=== PATIENT | female | born 1990 | race African-American/Black ===

== ENCOUNTER 2024-08-31 03:21 | Emergency (ER) | payer OTHER ==
[~2024-08-31] VITALS: Ht 167.6 cm; Wt 79.0 kg
[2024-08-31 03:37] VITALS: BP 143/57; PULSE 93; RESP 16; TEMP 36.9; O2SAT 98
[2024-08-31 06:55] LABS: HEMATOCRIT. 33.8 % (36.0-48.0); MEAN CORPUSCULAR HEMOGLOBIN 28.1 pg (28.0-32.0); MEAN CORPUSCULAR HGB CONC 32.6 g/dL (31.0-37.0); MEAN CORPUSCULAR VOLUME 86.3 fL (81.0-99.0); MEAN PLATELET VOLUME 9.2 fl (7.4-10.4); PLATELET 260 x1000/uL (130-400); RED BLOOD CELL COUNT 3.92 mill/uL (4.2-5.4); RED CELL DISTRIBUTION WIDTH 15.3 % (11.6-14.6); WHITE BLOOD COUNT 9.3 x1000/uL (4.5-11.0)
[2024-08-31 07:01] LABS: CARBON DIOXIDE 25 mEq/L (21-32); CHLORIDE 106 mEq/L (98-107); POTASSIUM 3.9 mEq/L (3.5-5.1); SODIUM 140 mEq/L (136-145)
[2024-08-31 07:04] LABS: DIFFERENTIAL COMMENT 1
[2024-08-31 07:06] LABS: CREATININE 0.9 mg/dL (0.6-1.0)
[2024-08-31 07:07] LABS: B-HCG QUANTITATIVE 849 mIU/mL (<3); GLUCOSE 120 mg/dL (70-105); UREA NITROGEN BLOOD 10 mg/dL (9-23)
[2024-08-31 07:08] LABS: ALANINE AMINOTRANSFERASE 9 IU/L (10-49); ASPARTATE AMINOTRANSFERASE 15 IU/L (<34)
[2024-08-31 07:09] LABS: BILIRUBIN TOTAL 0.3 mg/dL (0.1-1.0); PROTEIN TOTAL 7.6 g/dL (6.0-8.3)
[2024-08-31 07:12] LABS: BILIRUBIN DIRECT < 0.1 mg/dL (<=3.0)
[2024-08-31 09:16] LABS: PLATELET ESTIMATE NORMAL
[2024-08-31 09:17] LABS: COLOR URINE YELLOW (YELLOW)
[2024-08-31 09:18] LABS: CLARITY URINE CLOUDY (CLEAR); PROTEIN URINE NEGATIVE (NEGATIVE)
[2024-08-31 09:19] LABS: GLUCOSE URINE NEGATIVE (NEGATIVE); KETONES URINE NEGATIVE (NEGATIVE); LEUKOCYTE ESTERASE URINE 1+ (NEGATIVE); NITRITE URINE POSITIVE (NEGATIVE); OCCULT BLOOD URINE 3+ (NEGATIVE); SPECIFIC GRAVITY URINE >=1.030 (1.005-1.030); UROBILINOGEN URINE 0.2 E.U./dL (0.2-1.0)
[2024-08-31 09:39] LABS: BACTERIA URINE 4+; RBC URINE 0-2 /hpf (0-2); SQUAMOUS EPITHELIAL CELL URINE 3+ /lpf (RARE/1+)
[2024-08-31 09:40] LABS: YEAST URINE NONE SEEN
[2024-08-31] MEDS: KETOROLAC 30MG/ML VIAL IM ONE (11:07)
[2024-08-31] MEDS: HYDROCODONE/ACETAMINOPHEN 5/325MG TABLET PO ONE (11:07)
[2024-08-31] MEDS: SULFAMETHOXAZOLE/TRIMETHOPRIM 800/160MG TABLET PO ONE (11:08)
[2024-08-31] MEDS ORDERED: SULF1TAB48 MT (12:03)
[2024-08-31] MEDS ORDERED: ACET-2708 MT (12:03)
== END 2024-08-31 12:27 | disposition home or self-care (01) ==
LOC: ER 03:52
DX: O04.88 Urinary tract infection following (induced) termination of pregnancy (principal); O26.91 Pregnancy related conditions, unspecified, first trimester; R10.2 Pelvic and perineal pain; Z3A.01 Less than 8 weeks gestation of pregnancy
CPT/HCPCS: 99285; 76801; 80076; 80048; 81003; 81025; 84702; 83690; 85025; 87086; 36415; 76817; 96372; J1885

== ENCOUNTER 2024-09-04 09:07 | Emergency (ER) | payer OTHER, MEDICAID ==
[~2024-09-04] VITALS: Ht 165.1 cm; Wt 79.0 kg
[~2024-09-04 09:07] MED LIST: ACET-2708 MT; SULF1TAB48 MT
[2024-09-04 09:16] VITALS: O2SAT 100
[2024-09-04 10:12] LABS: CLARITY URINE CLOUDY (CLEAR); COLOR URINE DARK YELLOW (YELLOW); GLUCOSE URINE NEGATIVE (NEGATIVE); KETONES URINE 1+ (NEGATIVE); LEUKOCYTE ESTERASE URINE 3+ (NEGATIVE); NITRITE URINE POSITIVE (NEGATIVE); OCCULT BLOOD URINE 2+ (NEGATIVE); PH URINE 6.5 (4.5-8.0); PROTEIN URINE 1+ (NEGATIVE); SPECIFIC GRAVITY URINE 1.016 (1.005-1.030)
[2024-09-04 10:26] LABS: WBC URINE 15-25 /hpf (0-2)
[2024-09-04 10:27] LABS: BACTERIA URINE 2+; SQUAMOUS EPITHELIAL CELL URINE 1+ /lpf (RARE/1+); YEAST URINE NONE SEEN
[2024-09-04 11:34] LABS: BASOPHILS % 0.2 % (0.0-2.0); EOSINOPHILS % 2.9 % (0.0-5.0); HEMATOCRIT. 31.1 % (36.0-48.0); HEMOGLOBIN. 10.4 g/dL (12.0-16.0); LYMPHOCYTES % 9.6 % (20.0-50.0); MEAN CORPUSCULAR HEMOGLOBIN 28.2 pg (28.0-32.0); MEAN CORPUSCULAR HGB CONC 33.6 g/dL (31.0-37.0); MEAN CORPUSCULAR VOLUME 83.9 fL (81.0-99.0); MEAN PLATELET VOLUME 8.9 fl (7.4-10.4); MONOCYTES % 9.1 % (2.0-8.0); NEUTROPHILS % 78.2 % (40.0-76.0); PLATELET 274 x1000/uL (130-400); RED BLOOD CELL COUNT 3.71 mill/uL (4.2-5.4); RED CELL DISTRIBUTION WIDTH 15.8 % (11.6-14.6); WHITE BLOOD COUNT 6.8 x1000/uL (4.5-11.0)
[2024-09-04 11:37] LABS: CHLORIDE 101 mEq/L (98-107); POTASSIUM 3.2 mEq/L (3.5-5.1); SODIUM 135 mEq/L (136-145)
[2024-09-04 11:38] LABS: CARBON DIOXIDE 24 mEq/L (21-32)
[2024-09-04 11:39] LABS: CALCIUM 9.3 mg/dL (8.7-10.4)
[2024-09-04 11:43] LABS: B-HCG QUANTITATIVE 154 mIU/mL (<3); GLUCOSE 83 mg/dL (70-105)
[2024-09-04 11:44] LABS: UREA NITROGEN BLOOD 10 mg/dL (9-23)
[2024-09-04] MEDS ORDERED: ONDA4TAB50 MT (12:52)
[2024-09-04] MEDS ORDERED: HYDR-4001 MT (12:52)
[2024-09-04] MEDS ORDERED: IBUP-2029 MT (12:52)
[2024-09-04] MEDS ORDERED: CEFD300C3 MT (12:52)
[2024-09-04] MEDS: CEFTRIAXONE SODIUM 1G VIAL IM ONE (13:18)
[2024-09-04 13:40] VITALS: BP 119/64; PULSE 93; RESP 14; TEMP 36.9; O2SAT 100
== END 2024-09-04 13:42 | disposition home or self-care (01) ==
LOC: ER 09:07
DX: N12 Tubulo-interstitial nephritis, not specified as acute or chronic (principal); Z79.899 Other long term (current) drug therapy
CPT/HCPCS: 99285; 76830; 76856; 80048; 81003; 81025; 84702; 85025; 86900; 86901; 87086; 36415; 96372; J0696

== ENCOUNTER 2024-09-18 10:45 | Emergency (ER) | payer MEDICAID, OTHER ==
[~2024-09-18] VITALS: Ht 165.1 cm; Wt 77.0 kg
[~2024-09-18 10:45] MED LIST changes: +CEFD300C3 MT; +HYDR-4001 MT; +IBUP-2029 MT; +ONDA4TAB50 MT
[2024-09-18 10:47] VITALS: O2SAT 99
[2024-09-18 10:56] VITALS: BP 125/73; PULSE 68; RESP 18; TEMP 36.7; O2SAT 100
[2024-09-18 11:58] LABS: MONOCYTES % 6.4 % (2.0-8.0)
[2024-09-18 12:02] LABS: BASOPHILS % 1.1 % (0.0-2.0); EOSINOPHILS % 0.8 % (0.0-5.0); HEMATOCRIT. 31.8 % (36.0-48.0); HEMOGLOBIN. 10.3 g/dL (12.0-16.0); LYMPHOCYTES % 32.6 % (20.0-50.0); MEAN CORPUSCULAR HEMOGLOBIN 27.2 pg (28.0-32.0); MEAN CORPUSCULAR HGB CONC 32.5 g/dL (31.0-37.0); MEAN CORPUSCULAR VOLUME 83.8 fL (81.0-99.0); MEAN PLATELET VOLUME 7.9 fl (7.4-10.4); NEUTROPHILS % 59.1 % (40.0-76.0); PLATELET 567 x1000/uL (130-400); RED BLOOD CELL COUNT 3.79 mill/uL (4.2-5.4); RED CELL DISTRIBUTION WIDTH 15.7 % (11.6-14.6); WHITE BLOOD COUNT 7.4 x1000/uL (4.5-11.0)
[2024-09-18 12:04] LABS: CHLORIDE 105 mEq/L (98-107); POTASSIUM 3.3 mEq/L (3.5-5.1); SODIUM 141 mEq/L (136-145)
[2024-09-18 12:05] LABS: CARBON DIOXIDE 27 mEq/L (21-32)
[2024-09-18 12:10] LABS: CREATININE 0.8 mg/dL (0.6-1.0); GLUCOSE 89 mg/dL (70-105)
[2024-09-18 12:11] LABS: B-HCG QUANTITATIVE 3 mIU/mL (<3)
[2024-09-18 12:13] LABS: UREA NITROGEN BLOOD < 5 mg/dL (9-23)
[2024-09-18 12:58] LABS: CLARITY URINE CLEAR (CLEAR); COLOR URINE YELLOW (YELLOW); GLUCOSE URINE NEGATIVE (NEGATIVE); KETONES URINE NEGATIVE (NEGATIVE); LEUKOCYTE ESTERASE URINE NEGATIVE (NEGATIVE); NITRITE URINE NEGATIVE (NEGATIVE); OCCULT BLOOD URINE TRACE (NEGATIVE); PH URINE 7.5 (4.5-8.0); PROTEIN URINE NEGATIVE (NEGATIVE); SPECIFIC GRAVITY URINE 1.006 (1.005-1.030); UROBILINOGEN URINE 0.2 E.U./dL (0.2-1.0)
[2024-09-18 13:14] LABS: BACTERIA URINE FEW; RBC URINE 0-2 /hpf (0-2); SQUAMOUS EPITHELIAL CELL URINE FEW /lpf (RARE/1+); WBC URINE 0-2 /hpf (0-2); YEAST URINE NONE SEEN
[2024-09-18] MEDS ORDERED: NAPR-1495 MT (14:37)
== END 2024-09-18 14:46 | disposition home or self-care (01) ==
LOC: ER 10:45
DX: O26.891 Other specified pregnancy related conditions, first trimester (principal); R10.2 Pelvic and perineal pain; Z3A.00 Weeks of gestation of pregnancy not specified
CPT/HCPCS: 36415; 76801; 80048; 81003; 84702; 85025; 99284